=== PATIENT | male | born 1935 | race Caucasian/White ===

== ENCOUNTER 2018-11-19 08:59 | Observation (INO) | payer MEDICARE ==
[~2018-11-19] VITALS: Ht 188 cm; Wt 104.3 kg
[2018-11-19 09:26] LABS: BASOPHILS % (AUTO) 1 % (0-10); EOSINOPHILS # (AUTO) 0.1 10^3/uL (0.0-0.3); EOSINOPHILS % (AUTO) 2 % (0-10); HEMATOCRIT 39 % (40-54); HEMOGLOBIN 12.7 G/DL (13.3-17.7); LYMPHOCYTES # (AUTO) 0.9 X 10^3 (1.0-4.0); LYMPHOCYTES % (AUTO) 19 % (12-44); MEAN CORPUSCULAR HEMOGLOBIN 27 PG (25-34); MEAN CORPUSCULAR HGB CONC 32 G/DL (32-36); MEAN CORPUSCULAR VOLUME 85 FL (80-99); MEAN PLATELET VOLUME 9.2 FL (7.4-10.4); MONOCYTES # (AUTO) 0.5 X 10^3 (0.0-1.0); MONOCYTES % (AUTO) 9 % (0-12); NEUTROPHILS # (AUTO) 3.3 X 10^3 (1.8-7.8); NEUTROPHILS % (AUTO) 69 % (42-75); PLATELET COUNT 236 10^3/uL (130-400); RED CELL DISTRIBUTION WIDTH 15.8 % (10.0-14.5); WHITE BLOOD COUNT 4.8 10^3/uL (4.3-11.0)
[2018-11-19 09:34] LABS: BILIRUBIN,URINE NEGATIVE (NEGATIVE); CLARITY,URINE CLEAR; COLOR,URINE YELLOW; GLUCOSE, URINE (UA) NEGATIVE (NEGATIVE); KETONES,URINE NEGATIVE (NEGATIVE); LEUKOCYTE ESTERASE ,URINE NEGATIVE (NEGATIVE); NITRITE,URINE NEGATIVE (NEGATIVE); PH,URINE 6 (5-9); PROTEIN,URINE NEGATIVE (NEGATIVE); UROBILINOGEN,URINE NORMAL (NORMAL)
[2018-11-19 09:41] LABS: BACTERIA,URINE NEGATIVE /HPF; WBC,URINE 0-2 /HPF
[2018-11-19 09:43] LABS: ALANINE AMINOTRANSFERASE 16 U/L (0-55); ALBUMIN 3.6 GM/DL (3.2-4.5); ALKALINE PHOSPHATASE 269 U/L (40-136); BILIRUBIN,TOTAL 0.4 MG/DL (0.1-1.0); BUN/CREATININE RATIO 31; CALCIUM 8.8 MG/DL (8.5-10.1); CARBON DIOXIDE 24 MMOL/L (21-32); CHLORIDE 108 MMOL/L (98-107); CREATININE SERUM 0.64 MG/DL (0.60-1.30); GFR ESTIMATED > 60; GLUCOSE 102 MG/DL (70-105); POTASSIUM 4.3 MMOL/L (3.6-5.0); SODIUM 142 MMOL/L (135-145); TOTAL PROTEIN 6.4 GM/DL (6.4-8.2)
--- NOTE | 2018-11-19 09:43 | ED Fall/Injury ---
General Stated Complaint: FALL Source: patient, family, EMS Exam Limitations: other (patient is unable to offer help or history concerning many of his medical details.) History of Present Illness Date Seen by Provider: Nov 19, 2018 Time Seen by Provider: 09:08 Initial Comments This 83-year-old male presents via the paramedics with a history of having falle n last night in his bathroom. Patient was able to get up on his own. Paramedics were called this morning. On arrival the patient was able move 4 extremities and answer questions of a simple fashion. Patient denied any pain or significant injury in his fall. Via patient has a history of cancer that has been treated in the past. The patient states that his cancer has spread throughout his body. He states that he is not receiving any treatment for same. He was treated in [place], [place] for the cancer. 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 Allergies and Home Medications Allergies Coded Allergies: No Known Drug Allergies (Unverified , 11/19/18) Patient Home Medication List Home Medication List Reviewed: Yes Review of Systems Review of Systems Constitutional: see HPI; No chills; weakness Eyes: No Symptoms Reported Ears, Nose, Mouth, Throat: no symptoms reported Respiratory: orthopnea Cardiovascular: No chest pain Gastrointestinal: No abdominal pain, No diarrhea, No jaundice, No nausea, No vomiting Genitourinary: hesitancy, other (prostate cancer) Musculoskeletal: neck pain Skin: No change in color; other (bruising) Psychiatric/Neurological: No Symptoms Reported Past Lfkmtuy-Bhhhoq-Chqmgd Hx Past Med/Social Hx: Reviewed Nursing Past Med/Soc Hx Patient Social History Recent Foreign Travel: No Contact w/Someone Who Travel: No Physical Exam Vital Signs Vital Signs - First Documented 11/19/18 09:31 Temp 97.2 Pulse 71 Resp 24 B/P (MAP) 184/110 (134) Pulse Ox 96 O2 Delivery Room Air Capillary Refill : Height, Weight, BMI Height: '" Weight: lbs. oz. kg; BMI Method: General Appearance: WD/WN, no apparent distress HEENT: normal ENT inspection Neck: full range of motion, normal inspection Cardiovascular: normal peripheral pulses, regular rate, rhythm Respiratory: chest non-tender, lungs clear Gastrointestinal: normal bowel sounds, non tender, soft Back: normal inspection Extremities: normal range of motion, non-tender Neurologic/Psychiatric: no motor/sensory deficits, alert, normal mood/affect, oriented x 3, other (patient is a poor historian concerning his past medical history.) Skin: normal color, warm/dry Progress/Results/Core Measures Results/Orders Lab Results Laboratory Tests Test 11/19/18 09:03 11/19/18 09:15 11/19/18 09:32 Range/Units White Blood Count 4.8 4.3-11.0 10^3/uL Red Blood Count 4.63 4.35-5.85 10^6/uL Hemoglobin 12.7 L 13.3-17.7 G/DL Hematocrit 39 L 40-54 % Mean Corpuscular Volume 85 80-99 FL Mean Corpuscular Hemoglobin 27 25-34 PG Mean Corpuscular Hemoglobin Concent 32 32-36 G/DL Red Cell Distribution Width 15.8 H 10.0-14.5 % Platelet Count 236 130-400 10^3/uL Mean Platelet Volume 9.2 7.4-10.4 FL Neutrophils (%) (Auto) 69 42-75 % Lymphocytes (%) (Auto) 19 12-44 % Monocytes (%) (Auto) 9 0-12 % Eosinophils (%) (Auto) 2 0-10 % Basophils (%) (Auto) 1 0-10 % Neutrophils # (Auto) 3.3 1.8-7.8 X 10^3 Lymphocytes # (Auto) 0.9 L 1.0-4.0 X 10^3 Monocytes # (Auto) 0.5 0.0-1.0 X 10^3 Eosinophils # (Auto) 0.1 0.0-0.3 10^3/uL Basophils # (Auto) 0.0 0.0-0.1 10^3/uL Prothrombin Time 13.8 12.2-14.7 SEC INR Comment 1.0 0.8-1.4 Activated Partial Thromboplast Time 28 24-35 SEC D-Dimer 1.28 H 0.00-0.49 UG/ML Sodium Level 142 135-145 MMOL/L Potassium Level 4.3 3.6-5.0 MMOL/L Chloride Level 108 H 98-107 MMOL/L Carbon Dioxide Level 24 21-32 MMOL/L Anion Gap 10 5-14 MMOL/L Blood Urea Nitrogen 20 H 7-18 MG/DL Creatinine 0.64 0.60-1.30 MG/DL Estimat Glomerular Filtration Rate > 60 BUN/Creatinine Ratio 31 Glucose Level 102 70-105 MG/DL Calcium Level 8.8 8.5-10.1 MG/DL Corrected Calcium 9.1 8.5-10.1 MG/DL Total Bilirubin 0.4 0.1-1.0 MG/DL Aspartate Amino Transf (AST/SGOT) 20 5-34 U/L Alanine Aminotransferase (ALT/SGPT) 16 0-55 U/L Alkaline Phosphatase 269 H 40-136 U/L Troponin I < 0.028 <0.028 NG/ML Total Protein 6.4 6.4-8.2 GM/DL Albumin 3.6 3.2-4.5 GM/DL Urine Color YELLOW Urine Clarity CLEAR Urine pH 6 5-9 Urine Specific [place] 1.020 1.016-1.022 Urine Protein NEGATIVE NEGATIVE Urine Glucose (UA) NEGATIVE NEGATIVE Urine Ketones NEGATIVE NEGATIVE Urine Nitrite NEGATIVE NEGATIVE Urine Bilirubin NEGATIVE NEGATIVE Urine Urobilinogen NORMAL NORMAL MG/DL Urine Leukocyte Esterase NEGATIVE NEGATIVE Urine RBC (Auto) NEGATIVE NEGATIVE Urine RBC NONE /HPF Urine WBC 0-2 /HPF Urine Crystals NONE /LPF Urine Bacteria NEGATIVE /HPF Urine Casts NONE /LPF Urine Mucus TRACE /LPF Urine Culture Indicated NO Glucometer 96 70-110 MG/DL My Orders Orders - LUCILLE FULLER MD Cbc With Automated Diff (11/19/18 09:04) Protime With Inr (11/19/18 09:04) Partial Thromboplastin Time (11/19/18 09:04) Comprehensive Metabolic Panel (11/19/18 09:04) Fibrin Degradation Products (11/19/18 09:04) Troponin I (11/19/18 09:04) Ua Culture If Indicated (11/19/18 09:04) Chest 1 View, Ap/Pa Only (11/19/18 09:04) Ekg Tracing (11/19/18 09:04) Accucheck Stat ONCE (11/19/18 09:04) Ed Iv/Invasive Line Start (11/19/18 09:04) Ed Iv/Invasive Line Start (11/19/18 09:04) Vital Signs Stroke Patient Q15M (11/19/18 09:04) Ct Head Wo-R/O Stroke (11/19/18 09:04) O2 (11/19/18 09:04) Intake & Output 06,14,22 (11/19/18 09:04) Monitor-Rhythm Ecg Trace Only (11/19/18 09:04) Dysphagia Screening Tool (11/19/18 09:04) Post Thrombolytic Adminstratio (11/19/18 09:04) Lipid Panel (11/20/18 06:00) Ns Iv 1000 Ml (Sodium Chloride 0.9%) (11/19/18 10:00) Vital Signs/I&O 11/19/18 09:31 Temp 97.2 Pulse 71 Resp 24 B/P (MAP) 184/110 (134) Pulse Ox 96 O2 Delivery Room Air Progress Progress Note : Time: 11:02 Progress Note The patient's laboratory and radiographic evaluation the emergency department demonstrated no evidence of acute pathology on CT of the head. Patient's chest x-ray demonstrated questionable atelectasis in the base. The CBC, CMP, urinalysis, and troponin were all normal other than an elevated alkaline phosphatase. EKG demonstrated a sinus rhythm. I discussed findings with the patient and his daughter. We have called hospice for their evaluation of the patient in the emergency department. Hospice nurse was kind enough to present to evaluate the patient. There are several housekeeping items that are necessary for the patient at home. Dr. Gonzales was kind enough to allow us to admit Mr. Pierson to observation while these arrangements can be made at home. Departure Communication (Admissions) Time/Spoke to Admitting Phy: 12:30 Dr. Leon. 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 Referrals: UNKNOWN (PCP/Family) Primary Care Physician LUCILLE FULLER MD Nov 19, 2018 09:43
--- NOTE | 2018-11-19 09:57 | NUR ---
[facility] called at family's request.
[2018-11-19] MEDS ORDERED: NS IV 1000 ML 1,000 ML IV SCH (10:00)
--- NOTE | 2018-11-19 10:00 | NUR ---
[facility] called at family's request.
--- NOTE | 2018-11-19 10:06 | Diagnostic Imaging Report ---
PROCEDURE: CT head wo r/o stroke. TECHNIQUE: Multiple contiguous axial images were obtained through the brain without the use of intravenous contrast. Auto Exposure Controls were utilized during the CT exam to meet ALARA standards for radiation dose reduction. INDICATION: Right weakness and multiple falls with a history of prostate cancer. FINDINGS: There is prominence of the ventricles and sulci. There is no hydrocephalus or cerebral edema. There is no midline shift or mass-effect. There is no intracranial mass, hemorrhage, or extra-axial fluid collection. There is some diffuse decreased attenuation of the periventricular white matter which is nonspecific. The visualized paranasal sinuses and mastoid air cells are clear. There are no regional areas of decreased attenuation appreciated to suggest an acute CVA. IMPRESSION: 1. No acute intracranial process. 2. Age-appropriate atrophy. 3. Decreased attenuation of the periventricular white matter which is nonspecific, however, likely reflects senescent change and/or chronic small vessel ischemic disease. If there is high clinical concern for an acute CVA, further evaluation with MRI should be considered. Dictated by: Dictated on workstation # [id number]
--- NOTE | 2018-11-19 10:06 | Diagnostic Imaging Report ---
Indication: Right weakness. No prior examination available for comparison. Findings: There is cardiomegaly. Elevation of right hemidiaphragm. Right basilar atelectasis and/or pneumonitis. No pleural effusion or pneumothorax. Mediastinum unremarkable. Impression: Right basilar atelectasis and/or pneumonitis. Cardiomegaly. Dictated by: Dictated on workstation # [id number]
[2018-11-19 10:37] LABS: PROTHROMBIN TIME PATIENT 13.8 SEC (12.2-14.7)
[2018-11-19 10:38] LABS: FIBRIN DEGRADATION PRODUCTS 1.28 UG/ML (0.00-0.49)
--- NOTE | 2018-11-19 11:41 | NUR ---
Henny from [facility] in room with pt at this time.
[2018-11-19] MEDS ORDERED: TRAM50TA2 (13:10)
[2018-11-19] MEDS ORDERED: ENAL10TA (13:10)
--- NOTE | 2018-11-19 13:30 | NUR ---
LOBO COLLIER admitted to room 407-1, with an admitting diagnosis of GENERALIZED WEAKNESS AND METASTATIC PROSTATE CANCER, on 11/19/18 from ED via , accompanied by STAFF AND DAUGHTER. LOBO COLLIER introduced to surroundings, call light, bed controls, phone, TV, temperature control, lights, meal times, smoking policy, visitor policy, side rail policy, bathrooms and showers. Patient Rights given to patient in the handbook. LOBO COLLIER verbalizes understanding that [facility] is not responsible for the loss or damage to any personal effects or valuables that are kept in the patients posession during their hospitalization. LOBO COLLIER verbalizes understanding of Interdisciplinary Patient Education. Patient and/or family were informed about the Rapid Response Team and its purpose.
[2018-11-19 14:00] VITALS: BP 175/92
[2018-11-19] MEDS ORDERED: ACETAMINOPHEN 325 MG TABLET PO PRN (14:15)
[2018-11-19] MEDS ORDERED: IBUPROFEN 800 MG (MOTRIN) TAB PO PRN (14:30)
[2018-11-19] MEDS ORDERED: CATHETER FLUSH 10 ML SYR IV PRN (14:30)
[2018-11-19] MEDS: NS IV 1000 ML 1,000 ML IV SCH (14:55)
[2018-11-19 16:15] VITALS: BP 151/86
[2018-11-19] MEDS ORDERED: PATIENT MAY USE OWN MEDS, ALL MC SCH (16:45)
[2018-11-19] MEDS ORDERED: IBUP-2185 PO (17:32)
[2018-11-19 20:44] VITALS: BP 139/87
[2018-11-19 23:50] VITALS: BP 152/90
[2018-11-20 04:00] VITALS: BP 125/70
[2018-11-20 06:07] LABS: CHOLESTEROL 185 MG/DL (< 200); TRIGLYCERIDES 93 MG/DL (<150); VLDL CHOLESTEROL 19 MG/DL (5-40)
[2018-11-20 06:36] LABS: HDL CHOLESTEROL 50 MG/DL (40-60)
[2018-11-20 08:00] VITALS: BP 133/82
[2018-11-20] MEDS: NS IV 1000 ML 1,000 ML IV SCH (11:46)
[2018-11-20 12:00] VITALS: BP 145/96
--- NOTE | 2018-11-20 13:22 | Short Stay Summary-Hospitalist ---
History of Present Illness HPI/Chief Complaint Patient is an 83-year-old male with past medical history of metastatic prostate cancer who presented to the emergency room following a fall. He states he tripped and fell and landed between the toilet and the wall for the shower. He was down for about 30 minutes before he was able to crawl into his daughter's attention. His daughter was unable to get him up and so called 911 for assistance brought him here for evaluation. Fall workup in the emergency room was unrevealing. Due to generalized weakness discussions were had about goals of care with patient and daughter and they have elected to enroll in hospice. This is currently being arranged. He otherwise has no complaints and states that he is feeling well. He is requesting discharge even if he has to "crawl out of here" today. Source: patient Date Seen 11/20/18 Time Seen by a Provider: 10:15 Attending Physician Amber Leon MD PCP No,Local Physician Referring Physician Date of Admission Nov 19, 2018 at 12:30 pm Home Medications & Allergies Home Medications Reviewed patient Home Medication Reconciliation performed by pharmacy medication reconciliations electrophysiology technician and/or nursing. Patients Allergies have been reviewed. Allergies Allergies Coded Allergies No Known Drug Allergies (Unverified11/19/18) Past Wqfgnan-Mablcd-Nubcdu Hx Past Med/Social Hx: Reviewed Nursing Past Med/Soc Hx Patient Social History Employed/Student: retired Alcohol Use: Occasionally Uses Recreational Drug Use: No 2nd Hand Smoke Exposure: No Recent Foreign Travel: No Contact w/other who traveled: No Recent Hopitalizations: No Recent Infectious Disease Expo: No Past Medical History Surgeries: Appendectomy Cardiac: Hypertension Genitourinary: Prostate Problems Cancer: Prostate What Type of Treatment Did You: Radiation History of Blood Disorders: No Review of Systems Constitutional: weakness EENTM: no symptoms reported Respiratory: no symptoms reported Cardiovascular: no symptoms reported Gastrointestinal: no symptoms reported Genitourinary: no symptoms reported Musculoskeletal: joint pain Skin: no symptoms reported Psychiatric/Neurological: No Symptoms Reported Physical Exam Physical Exam Vital Signs Vital Signs - First Documented 11/19/18 09:31 Temp 97.2 Pulse 71 Resp 24 B/P (MAP) 184/110 (134) Pulse Ox 96 O2 Delivery Room Air Capillary Refill : Greater Than 3 Seconds Height, Weight, BMI Height: 6'2.00" Weight: 230lbs. oz. 104.830526mx; BMI Method:Stated General Appearance: No Apparent Distress, WD/WN HEENT: PERRL/EOMI, Moist Mucous Membranes; No Scleral Icterus (L), No Scleral Icterus (R) Neck: Non Tender, Supple Respiratory: Lungs Clear, No Respiratory Distress Cardiovascular: Regular Rate, Rhythm, No Murmur Gastrointestinal: Normal Bowel Sounds, Non Tender, Soft Extremity: Normal Capillary Refill, No Calf Tenderness, No Pedal Edema Neurologic/Psychiatric: Alert, Oriented x3, Normal Mood/Affect; No Aphasia, No Facial Droop Skin: Normal Color, Warm/Dry Results Results/Procedures Labs Laboratory Tests 11/19/18 09:03 Patient resulted labs reviewed. Imaging: Reviewed Imaging Report Imaging Date of Exam: 11/19/18 CT HEAD WO-R/O STROKE PROCEDURE: CT head wo r/o stroke. TECHNIQUE: Multiple contiguous axial images were obtained through the brain without the use of intravenous contrast. Auto Exposure Controls were utilized during the CT exam to meet ALARA standards for radiation dose reduction. INDICATION: Right weakness and multiple falls with a history of prostate cancer. FINDINGS: There is prominence of the ventricles and sulci. There is no hydrocephalus or cerebral edema. There is no midline shift or mass-effect. There is no intracranial mass, hemorrhage, or extra-axial fluid collection. There is some diffuse decreased attenuation of the periventricular white matter which is nonspecific. The visualized paranasal sinuses and mastoid air cells are clear. There are no regional areas of decreased attenuation appreciated to suggest an acute CVA. IMPRESSION: 1. No acute intracranial process. 2. Age-appropriate atrophy. 3. Decreased attenuation of the periventricular white matter which is nonspecific, however, likely reflects senescent change and/or chronic small vessel ischemic disease. If there is high clinical concern for an acute CVA, further evaluation with MRI should be considered. Short Stay Diagnosis Discharge Diagnosis-Short Stay Admission Diagnosis Generalized weakness Final Discharge Diagnosis Metastatic prostate cancer Conclusion Plan Metastatic prostate cancer Patient has elected to enroll in hospice Elected [facility] I called and spoke with Henny RM for hospice and arrangements for home care will be made today Plan to discharge home once the DME in home Diagnosis/Problems Diagnosis/Problems (1) Prostate cancer metastatic to bone Status: Acute (2) Generalized weakness Status: Acute Clinical Quality Measures DVT/VTE Risk/Contraindication: Risk Factor Score Per Nursin RFS Level Per Nursing on Admit: 4+=Very High AMBER LEON MD Nov 20, 2018 1:22 pm
== END 2018-11-20 13:22 | disposition hospice, home (50) ==
LOC: ER 09:00 → UNDOADMOB 12:30 → 4TH 12:30 → UNDODISOB 11-20 14:00
PROVIDERS: ADMIT Family Medicine; ATTEND Family Medicine
DX: C61 Malignant neoplasm of prostate (principal); C79.51 Secondary malignant neoplasm of bone; I10 Essential (primary) hypertension; R53.1 Weakness; Z92.3 Personal history of irradiation; Z91.81 History of falling; Z66 Do not resuscitate; R23.3 Spontaneous ecchymoses
CPT/HCPCS: 36415; 70450; 71045; 80053; 80061; 81000; 82962; 84484; 85025; 85379; 85610; 85730; 93005; 93041; 96360; 96361; G0378